=== PATIENT | male | born 1985 | race Hispanic/Latino ===

== ENCOUNTER 2017-03-04 07:05 | Emergency (ER) | payer OTHER ==
[~2017-03-04] VITALS: Ht 180.3 cm; Wt 79.1 kg
[2017-03-04 07:50] LABS: HEMATOCRIT 41.2 % (38.0-50.0); MCH 28.4 PG (29.0-34.0); MCHC 34.5 G/DL (30.0-36.0); MCV 82.4 FL (86-99); MEAN PLAT.VOLUME 10.4 uM^3 (9.0-12.4); PLATELET COUNT 206 K/uL (156-360); RBC DIS.WIDTH-CV 13.2 % (11.8-14.6); RBC DIS.WIDTH-SD 39.8 % (39-53); WHITE BLOOD COUNT 5.2 K/uL (4.1-10.2)
[2017-03-04 08:02] LABS: CHLORIDE 106 mEq/L (99-109); POTASSIUM 4.1 mEq/L (3.7-5.4); SODIUM 140 mEq/L (136-147)
[2017-03-04 08:05] LABS: GLUCOSE 104 mg/dL (70-99)
[2017-03-04 08:06] LABS: ANION GAP 9 MEQ/L (2-14)
[2017-03-04 08:07] LABS: TOTAL BILIRUBIN 0.9 mg/dL (0.0-1.0)
[2017-03-04 08:08] LABS: ALKALINE PHOSPHATASE 62 IU/L (3-129)
[2017-03-04 08:09] LABS: GFR ESTIMATE (CALCULATED) > 59 mL/min/
[2017-03-04 08:10] LABS: UREA NITROGEN (BUN) 9 mg/dL (9-23)
[2017-03-04 08:12] LABS: LIPASE 75 U/L (1.0-51.0)
[2017-03-04 10:19] LABS: ADD MIUA? NO; BILIRUBIN NEGATIVE; BLOOD NEGATIVE; COLOR COLORLESS ((YELLOW)); GLUCOSE (STRIP) NEGATIVE; KETONES NEGATIVE; LEUKOCYTES NEGATIVE; NITRITE NEGATIVE; PROTEIN (STRIP) NEGATIVE; SPECIFIC GRAVITY 1.017 (1.000-1.030); UCUL ADDED? NO; UROBILINOGEN 0.2 MG/DL (0.2-1.0)
[2017-03-04] MEDS ORDERED: BENTYL10 MG PO (10:40)
[2017-03-04] MEDS ORDERED: ZOFRAN ODT4 MG PO (10:40)
[2017-03-04 10:56] VITALS: BP 138/92
== END 2017-03-04 11:07 | disposition home or self-care (01) ==
LOC: EME 07:05
DX: R10.9 Unspecified abdominal pain (principal); R11.2 Nausea with vomiting, unspecified; R19.7 Diarrhea, unspecified; F17.200 Nicotine dependence, unspecified, uncomplicated
CPT/HCPCS: 74177; 80053; 81003; 83690; 85027; 99281; 99285; J1885; J2405; J7030